=== PATIENT | female | born 1965 | race Two or more races ===

== ENCOUNTER 2021-08-30 06:17 | Day surgery (SDC) | payer OTHER ==
[~2021-08-30 06:17] MED LIST: FOSAMAX70 MG PO
== END 2021-08-30 18:35 | disposition home or self-care (01) ==
LOC: CIR.AMB 06:17
PROVIDERS: ATTEND Obstetrics & Gynecology Obstetrics
DX: N72 Inflammatory disease of cervix uteri (principal); Z20.822 Contact with and (suspected) exposure to COVID-19